=== PATIENT | female | born 1995 | race Caucasian/White ===

== ENCOUNTER 2023-03-10 10:38 | Emergency (ER) | payer BC, SELFPAY ==
[2023-03-10] VITALS (7 sets, daily range): BP systolic 108–126; BP diastolic 73–83; PULSE 76–95; RESP 16–22; TEMP 36.9–37; O2SAT 96–100; BMI 32.2
[2023-03-10 11:33] LABS: Chloride 103 mmol/L (98-107); Sodium 139 mmol/L (136-145)
--- NOTE | 2023-03-10 11:33 | HMH.EDGENADL ---
Discharge Plan Disposition Patient Disposition: Home, Self-Care Condition: Good Prescriptions Prescriptions: New nitazoxanide 500 mg tablet 500 mg PO TID 7 Days Qty: 21 0RF Rx Instructions: must administer with a meal/food Referrals Follow up/Referrals: Nikole Diego MD [Primary Care Provider] - See instructions Activity Restrictions/Add. Instructions Additional Instructions/Restrictions: You were evaluated in the emergency department today. Hydrate at home. Return to the emergency department for new or worsening symptoms. Clinical Impressions Clinical Impression: Diarrhea, Hypokalemia Instructions Patient Instructions: DI for Diarrhea and Traveler's Diarrhea -- Adult, DI for Nausea -- Adult Discharge ED Provider: Kellie Adler General Adult HPI General Chief complaint: Nausea/Vomiting/Diarrhea Stated complaint: DIARRHEA FOR A WEEK Time Seen by Provider: 03/10/23 10:50 Mode of Arrival: Ambulatory Source of Information: Patient Limitations: No Limitations Description of Symptoms (Recalled from ER Triage Doc. by RN): c/o 6 days of diarrhea after her calf 2 weeks ago with having diarrhea (scours). States this started 5 days after the calf . History of Present Illness HPI narrative: This patient is a 27-year-old female who denies significant past medical history presenting to the emergency department for evaluation with concern for diarrhea. She reports that her bottle-fed calf 2 weeks ago after having profuse, watery diarrhea, and she started having watery diarrhea approximately 5 days later. She is concerned that she got scours from the cow. She was reading online that it could be Cryptosporidium, and she is requesting possible treatment for this. She states she is having anywhere from 10-20 loose, watery bowel movements a day. She also notes generalized abdominal cramping. She denies any blood in her stools or dark tarry stools. No other concerns noted at this time. No history of bowel issues, and no recent antibiotic use. Related Data Previous Rx's Medication Instructions Recorded nitazoxanide 500 mg tablet 500 mg PO TID 7 days #21 tabs 03/10/23 Allergies Allergy/AdvReac Type Severity Reaction Status Date / Time No Known Allergies Allergy Verified 03/10/23 11:15 [facility] Disclaimer: The information contained in this section may have been updated after the patient was seen, as this information can be updated by other users. Social History Smoking Status: Never smoker alcohol intake: never current occupational status: employed Travel in the last 8 weeks: None ROS Obtained: Yes All systems reviewed & no additional complaints except as documented Physical Exam General General appearance: alert and in no apparent distress Head Head exam: atraumatic and normocephalic Eye Eye exam: Present normal appearance, PERRL and EOMI ENT ENT exam: Present normal exam, normal oropharynx, mucous membranes moist and normal external ear exam Neck Neck exam: Present normal inspection, full ROM and trachea midline; Absent tenderness Chest Chest inspection: Present normal inspection and symmetric chest wall rise; Absent tenderness Respiratory Respiratory exam: Present normal lung sounds bilaterally; Absent respiratory distress, wheezes, stridor or accessory muscle use Cardiovascular Cardiovascular exam: Present regular rate and normal rhythm Abdominal Exam Abdominal exam: Present soft; Absent distention, tenderness or guarding Extremities Exam Extremities exam: Present normal inspection, full ROM and normal capillary refill; Absent tenderness or edema Back Exam Back exam: Present normal inspection and full ROM; Absent tenderness Neurological Exam Neurological exam: Present alert, oriented X3, CN II-XII intact and normal gait; Absent motor sensory deficit Psychiatric Psychiatric exam: Present normal affect and dori
[2023-03-10 11:36] LABS: Alanine Aminotransferase 42 U/L (12-78); Albumin Level 4.5 g/dl (3.5-5.0); Albumin/Globulin Ratio 1.6 (1.1-1.8); Alkaline Phosphatase 56 U/L (38-126); Anion Gap 12.9 mEq/L (5-15); Aspartate Amino Transferase 44 U/L (14-36); Bilirubin,Total 0.5 mg/dl (0.2-1.3); Blood Urea Nitrogen 9 mg/dl (7-17); Calcium 8.4 mg/dl (8.4-10.2); Carbon Dioxide 26 mmol/L (22.0-30.0); Creatinine Clearance Estimated 163 mL/min (50-200); Estimated Glomerular Filt Rate 118 ml/min (>60); GFR (African American) 143 ML/MIN (>60); Globulin 2.8 g/dL (1.3-3.2); Glucose 86 mg/dl (74-100); Lipase 83 U/L (23-300); Magnesium 1.7 mg/dl (1.6-2.3); Total Protein,Serum 7.3 g/dl (6.3-8.2)
[2023-03-10 11:41] LABS: HCG Qualitative, Serum Negative (Negative)
[2023-03-10 11:45] LABS: Potassium 2.9 mmoL/L (3.5-5.1)
--- NOTE | 2023-03-10 11:45 | PC.NURSE ---
checked on pt no needs at this time,call light at bs
--- NOTE | 2023-03-10 11:45 | PC.NURSE ---
CRITICAL K+ 2.9 RECEIVED FROM ILAN IN LAB, PT NAME AND R/V DR KATZ NOTIFIED OF K+2.9
[2023-03-10 11:51] LABS: Basophils % 0.5 % (0.1-2.0); Eosinophils # 0.2 K/mm3 (0.0-0.4); Eosinophils % 3.8 % (0.1-12.0); Hematocrit 43.8 % (37.0-47.0); Hemoglobin 14.9 g/dL (12.2-16.2); Lymphocytes # 1.5 K/mm3 (0.7-4.5); Lymphocytes % 27.6 % (10-50); Mean Corpuscular HGB Conc 34.1 g/dL (31.8-35.4); Mean Corpuscular Hemoglobin 29.2 pg (27.0-31.2); Mean Corpuscular Volume 85.8 fl (81-99); Mean Platelet Volume 9.5 fl (7.4-10.4); Monocytes # 0.4 K/mm3 (0.1-1.0); Monocytes % 7.2 % (1.7-9.3); Neutrophils # 3.3 K/mm3 (1.8-7.8); Neutrophils % 60.9 % (37.0-80.0); Platelet Count 242 K/mm3 (142-424); Red Cell Distribution Width 13.1 % (11.5-17.5); White Blood Count 5.5 K/mm3 (4.8-10.8)
--- NOTE | 2023-03-10 12:11 | PC.NURSE ---
PT MEDICATED PER EMAR, UPDATED ON POC. CALL LIGHT WITHIN REACH
--- NOTE | 2023-03-10 15:23 | PC.NURSE ---
PT UNABLE TO PROVIDE STOOL SAMPLE AFTER MULTIPLE ATTEMPTS, AWARE
== END 2023-03-10 16:10 | disposition home or self-care (01) ==
PROVIDERS: Emergency Provider Emergency Medicine; PCP Pediatrics
DX: R19.7 Diarrhea, unspecified (principal); E87.6 Hypokalemia
CPT/HCPCS: 80053; 83690; 83735; 84703; 85025; 96361; 96365; 96367; 99284; J3475

== ENCOUNTER 2023-11-27 11:30 | Outpatient (CLI) | payer BC, SELFPAY ==
[2023-11-27 18:42] LABS: Basophils % 0.5 % (0.1-2.0); Eosinophils # 0.2 K/mm3 (0.0-0.4); Eosinophils % 2.3 % (0.1-12.0); Hematocrit 42.7 % (37.0-47.0); Hemoglobin 13.6 g/dL (12.2-16.2); Lymphocytes # 1.9 K/mm3 (0.7-4.5); Lymphocytes % 26.9 % (10-50); Mean Corpuscular HGB Conc 31.8 g/dL (31.8-35.4); Mean Corpuscular Hemoglobin 29.1 pg (27.0-31.2); Mean Corpuscular Volume 91.3 fl (81-99); Mean Platelet Volume 10.5 fl (7.4-10.4); Monocytes # 0.3 K/mm3 (0.1-1.0); Monocytes % 4.6 % (1.7-9.3); Neutrophils # 4.6 K/mm3 (1.8-7.8); Neutrophils % 65.7 % (37.0-80.0); Platelet Count 310 K/mm3 (142-424); Red Blood Count 4.67 M/mm3 (4.20-5.40); Red Cell Distribution Width 13.5 % (11.5-17.5); White Blood Count 6.9 K/mm3 (4.8-10.8)
[2023-11-27 19:37] LABS: Alanine Aminotransferase 22 U/L (12-78); Albumin/Globulin Ratio 1.5 (1.1-1.8); Alkaline Phosphatase 56 U/L (38-126); Anion Gap 9.2 mEq/L (5-15); Aspartate Amino Transferase 25 U/L (14-36); Bilirubin,Total 0.6 mg/dl (0.2-1.3); Blood Urea Nitrogen 11 mg/dl (7-17); Calcium 9.1 mg/dl (8.4-10.2); Carbon Dioxide 25 mmol/L (22.0-30.0); Chloride 109 mmol/L (98-107); Chol/HDL Ratio 4.3 (1-3.5); Cholesterol 188 mg/dl (140-200); Estimated Glomerular Filt Rate 117 ml/min (>60); GFR (African American) 142 ML/MIN (>60); Globulin 2.7 g/dL (1.3-3.2); Glucose 92 mg/dl (74-100); HDL Cholesterol 44 mg/dl (40-60); Potassium 4.2 mmoL/L (3.5-5.1); Sodium 139 mmol/L (136-145); Total Protein,Serum 6.7 g/dl (6.3-8.2); Triglycerides 96 mg/dl (30-150); VLDL Cholesterol 19 mg/dL (0-40)
[2023-11-27 19:48] LABS: Direct LDL Cholesterol 109.68 mg/dL (100-129)
[2023-11-27 19:51] LABS: 25-OH Vitamin D, Total 33.6 ng/mL (30-100)
[2023-11-27 21:37] LABS: Thyroid Stimulating Hormone 0.78 uIU/mL (0.465-4.68)
== END 2023-11-27 23:59 | disposition home or self-care (01) ==
LOC: LAB.DROPOF 11-28 09:26
PROVIDERS: PCP Family Medicine; Visit Provider Family Medicine
DX: E87.6 Hypokalemia (principal); E66.9 Obesity, unspecified; Z68.31 Body mass index [BMI] 31.0-31.9, adult
CPT/HCPCS: 80050; 80053; 80061; 82306; 84443; 85025

== ENCOUNTER 2023-12-07 12:55 | Outpatient (CLI) | payer BC, SELFPAY ==
--- NOTE | 2023-12-07 13:04 | XR_ITS ---
FINAL REPORT CLINICAL HISTORY: Foot Pain COMPARISON: None FINDINGS: RIGHT FOOT 4 views of the right foot were obtained. There is no acute fracture or dislocation. Visualized joint spaces are normally aligned. Soft tissues are unremarkable. IMPRESSION: No acute bony abnormality. Reviewed, Interpreted and Dictated by Max Lombardo MD Transcribed by Kim Castillo Authenticated and [facility]
--- NOTE | 2023-12-07 13:04 | XR_ITS ---
FINAL REPORT CLINICAL HISTORY: Foot Pain COMPARISON: None FINDINGS: LEFT FOOT 4 views of the left foot demonstrate no acute fracture or dislocation. The visualized joint spaces are normally aligned. The soft tissues are unremarkable. IMPRESSION: No acute bony abnormality. Reviewed, Interpreted and Dictated by Max Lombardo MD Transcribed by Kim Castillo Authenticated and [facility]
== END 2023-12-07 23:59 | disposition home or self-care (01) ==
LOC: RAD 12:56
PROVIDERS: PCP Family Medicine; Visit Provider Family Medicine
DX: R00.2 Palpitations (principal); M79.671 Pain in right foot; M79.672 Pain in left foot
CPT/HCPCS: 73630; 93270

== ENCOUNTER 2024-02-15 15:28 | Emergency (ER) | payer BC, SELFPAY ==
[2024-02-15 15:35] VITALS: BP 120/61; PULSE 91; RESP 20; TEMP 37.2; O2SAT 97; BMI 31.8
--- NOTE | 2024-02-15 15:40 | EXP.UTC ---
Discharge Plan Disposition Patient Disposition: Home, Self-Care Condition: Good Prescriptions Prescriptions: New propranolol 10 mg tablet 10 mg PO .qhs 30 Days Qty: 30 0RF Referrals Follow up/Referrals: Naz Fowler APRN [Primary Care Provider] - See instructions Activity Restrictions/Add. Instructions Additional Instructions/Restrictions: Take the medications as directed. Follow up with your regular doctor. GO TO THE ER FOR ANY WORSENING SYMPTOMS Clinical Impressions Clinical Impression: Anxiety Stand Alone Forms Stand Alone Forms: Work/School Release Instructions Patient Instructions: Anxiety Disorders, Propranolol (Cardiovascular) Print Language Print Language: Upper Sorbian Discharge ED Provider: Romario Sandoval [facility] General Stated complaint: HBP,sometimes hot,dizzy Time Seen by Provider: 02/15/24 15:39 History of Present Illness Provider Complaint: She states that she has been having panic attacks at night after she goes to bed. She states that in the past she took a small dose of propranolol before bedtime and it helped them. She requests to have this prescribed again. Related Data Previous Rx's ?Medication ?Instructions ?Recorded propranolol 10 mg tablet 10 mg PO .qhs 30 days #30 tabs 02/15/24 Allergies Allergy/AdvReac Type Severity Reaction Status Date / Time No Known Allergies Allergy Verified 12/15/23 13:38 [facility] Disclaimer: The information contained in this section may have been updated after the patient was seen, as this information can be updated by other users. Medical History (Updated 02/15/24 @ 16:27 by Romraio Sandoval APRN) Depression Anxiety Hyperlipidemia Surgical History No significant past surgical history Social History Smoking Status: Never smoker alcohol intake: never substance use type: denies use current occupational status: employed and unemployed Travel in the last 8 weeks: None ROS Obtained: Yes All systems reviewed & no additional complaints except as documented Constitutional Constitutional: Denies chills and Denies fever(s) Eyes Eyes: Denies eye discharge ENT Ears, Nose, Mouth, and Throat: Denies dizziness, Denies otalgia and Denies sore throat Cardiovascular Cardiovascular: Denies chest pain Respiratory Respiratory: Denies shortness of breath, Denies chest congestion, Denies cough, Denies stridor and Denies wheezing Gastrointestinal Gastrointestingal: Denies nausea or vomiting Musculoskeletal Musculoskeletal: Reports system reviewed and no additional complaints, except as documented and Denies arthralgias Integumentary/Breasts Skin/Breast: Denies rash Neurologic Neurologic: Denies dizziness and Denies paresthesias Allergic/Immunologic Allergic/Immunologic: Denies wheezing Physical Exam General General appearance: alert and in no apparent distress Head Head exam: atraumatic, normocephalic and normal inspection Eye Eye exam: Present normal appearance, PERRL and EOMI ENT ENT exam: Present normal exam, normal oropharynx, mucous membranes moist, TM's normal bilaterally and normal external ear exam Neck Neck exam: Present normal inspection, full ROM and trachea midline; Absent meningismus or lymphadenopathy Chest Chest inspection: Present normal inspection and symmetric chest wall rise; Absent tenderness Respiratory Respiratory exam: Present normal lung sounds bilaterally; Absent respiratory distress Cardiovascular Cardiovascular exam: Present regular rate and normal rhythm; Absent JVD Abdominal Exam Abdominal exam: Present soft and normal bowel sounds; Absent distention, tenderness or guarding Extremities Exam Extremities exam: Present normal inspection, full ROM and normal capillary refill; Absent calf tenderness Back Exam Back exam: Present normal inspection; Absent tenderness Neurological Exam Neurological exam: Present alert and oriented X3 Psychiatric Psychiatric exam: Present normal affect and normal mood Skin Skin exam: Present warm, dry, intact and normal color Lymphatic Lymphatic Findings: no adenopathy Medical Decision Making Medical Records Medical records reviewed: No I reviewed the patient's medical records. Screening: Per USPSTF and CDC recommendations, given the prevalence of disease in our region, it is our hospital?s policy to screen for HIV and viral Hepatitis for all patients aged 18 and over and those with ongoing risk factors. Jin Inquiry Pt receiving controlled substance: No
[2024-02-15 16:33] VITALS: BP 120/61; PULSE 91; RESP 20; TEMP 37.2; O2SAT 97
== END 2024-02-15 16:36 | disposition home or self-care (01) ==
PROVIDERS: Emergency Provider Nurse Practitioner Family; PCP Family Medicine
DX: F41.9 Anxiety disorder, unspecified (principal)
CPT/HCPCS: 99213; G0381

== ENCOUNTER 2024-03-03 10:29 | Outpatient (CLI) | payer BC, SELFPAY | END 2024-03-03 23:59 | disposition home or self-care (01) | LOC: LAB.DROPOF 03-07 10:30 | PROVIDERS: PCP Family Medicine; Visit Provider Family Medicine | DX: N89.8 Other specified noninflammatory disorders of vagina (principal) | CPT/HCPCS: 87086; 87210 ==

== ENCOUNTER 2024-10-31 09:45 | Outpatient (CLI) | payer SELFPAY ==
--- NOTE | 2024-10-31 09:47 | XR_ITS ---
FINAL REPORT CLINICAL HISTORY: pain with breathing COMPARISON: None FINDINGS: No acute pulmonary density is evident. There is no evidence of effusion or other pleural disease. The mediastinum has a normal appearance. The cardiac silhouette is unremarkable. IMPRESSION: Unremarkable chest exam. Reviewed, Interpreted and Dictated by Yamila Danielson MD Transcribed by Kim Castillo Authenticated and [facility]
--- OUTSIDE RECORDS SUMMARY | 2024-10-31 09:49 | XMS_ITS | Referral Summary ---
Author Organization [employer] ([place], [place], [place], [place]) Address [address] [place] [address] Care Team Providers Care Antisqueak Filler Name Role Phone Unavailable Primary Care Provider Unavailabl e Social History Tobacco Use Types Packs/Day Years Used Date Smoking Tobacco: Never Assessed Comments Unknown Sex and Gender Information Value Date Recorded Sex Assigned at Female 10/15/2021 9:02 PM CDT Legal Sex Female 9:02 PM CDT Gender Identity Female 10/15/2021 9:02 PM CDT Sexual Orientation Not on file Plan of Treatment Not on file
--- OUTSIDE RECORDS SUMMARY | 2024-10-31 09:49 | XMS_ITS | Encounter Summary ---
Author Organization [employer] ([place], [place], [place], [place]) Address [address] [place] [address] Care Team Providers Care Pharmacoepidemiologist Name Role Phone Unavailable Primary Care Provider Unavailabl e Encounter Details Date Type Department Care Team (Late st Contact Info) Description 05/22/2021 Transcribed Document [facility] [place] [facility] [place] [address] ProviderGigi MD [address] [place] [id number] Social History Tobacco Use Types Packs/Day Years Used Date Smoking Tobacco: Never Assessed Comments Unknown Sex and Gender Information Value Date Recorded Sex Assigned at Female 10/15/2021 9:02 PM CDT Legal Sex Female 9:02 PM CDT Gender Identity Female 10/15/2021 9:02 PM CDT Sexual Orientation Not on file documented as of this encounter Miscellaneous Notes * Cerner Conversion Note - Historical ProviderMD - 05/22/2021 3:52 PM ELECTRONICS DESIGN ENGINEER ED Triage Entered On: 05/22/2021 16:00 EST Performed On: 05/22/2021 15:57 EST by HALI PARRA RN ED Triage Across the Room Chief Complaint : Pt C/o dizziness and blurred vision that occured in the middle of the night Triage Date/Time : 05/22/2021 15:57 EST HALI PARRA RN - 05/22/2021 15:57 EST DCP GENERIC CODE Tracking Acuity : 3 - Urgent Tracking Group : [facility] [place] HALI PARRA RN - 05/22/2021 15:57 EST Mode of Arrival : Ambulatory Transported to ED by : Private vehicle To Room Via : Ambulate Accompanied By : Unaccompanied ED Vital Signs : Document Height & Weight : Document ED Allergies : Document ED Reason for Visit : Document HALI PARRA RN - 05/22/2021 15:57 EST Infectious Disease History Does patient have symptoms of COVID-19? : No Has the Patient Been Tested for COVID-19 in the last 14 days? : No, Patient stated Does the Patient state known exposure to a COVID-19 positive case in the last 14 days? : No Patient Vaccinated for COVID-19 : Not vaccinated Does Patient want a COVID-19 Vaccine? : No HALI PARRA RN - 05/22/2021 15:57 EST Infectious Disease Risk Screening Grid Cough < 2 wks of unknown origin : NO Cough > 2 weeks : NO Blood in Sputum : NO Fever or self-reported Fever : NO Rash of unknown origin : NO Headache : NO Stiff neck : NO Night Sweats : NO Unexplained Weight Loss : NO Diarrhea (3 episode per day) : NO HALI PARRA RN - 05/22/2021 15:57 EST Physical contact outside [place] in the last 30 days : No Hospitalized in Foreign Country : No Infectious Disease History : None INF Disease TB Screening Calc : 0 INF Disease Recent Travel Calc : 0 HALI PARRA RN - 05/22/2021 15:57 EST Vital Signs ED Temperature Source : Temporal artery scanning Temperature Mode : Fahrenheit Temperature, Fahrenheit : 98.7 Deg F ED Pain : No Clinical Temperature, C : 37.1 Deg C Oxygen Therapy Mode : Room air Peripheral Pulse Rate : 97 bpm Respiratory Rate : 16 Breaths/Min Systolic Blood Pressure : 130 mmHg Diastolic Blood Pressure : 63 mmHg Oxygen Saturation : 98 % HALI PARRA RN - 05/22/2021 15:57 EST Allergy (As Of: 05/22/2021 16:00:59 EST) Allergies (Active) No Known Allergies Estimated Onset Date: Unspecified ; Created By: HALI PARRA RN; Reaction Status: Active ; Category: Drug ; Substance: No Known Allergies ; Type: Allergy ; Updated By: HALI PARRA RN; Reviewed Date: 05/22/2021 15:59 EST Diagnosis Control ED (As Of: 05/22/2021 16:00:59 EST) Diagnoses(Active) Vision changes Date: 05/22/2021 ; Diagnosis Type: Reason For Visit ; Confirmation: Complaint of ; Clinical Dx: Vision changes ; Classification: Medical ; Clinical Service: Emergency medicine ; Code: PNED ; Probability: 0 ; Diagnosis Code: [id number] ED Height and Weight Height Source : Estimated Height Entry Format : [place] Height, Feet : 5 ft(Converted to: 152 cm, 60 Inch) Height, Inches : 0 Inch(Converted to: 0 ft 0 Inch, 0.00 cm) Clinical Height : 152.4 cm Weight Source, ED : Critical estimated dosing weight Weight Entry Format : [place] Weight, Pounds : 160 lb Clinical Dosing Weight : 72.73 kg Body Surface Area (BSA) : 1.7 m2 Body Mass Index : 31.3 kg/m2 (HI) [place] Body Weight (IBW) : 45.16 kg HALI PARRA RN - 05/22/2021 15:57 EST documented in this encounter Plan of Treatment Not on file documented as of this encounter Visit Diagnoses Not on filedocumented in this encounter
--- OUTSIDE RECORDS SUMMARY | 2024-10-31 09:49 | XMS_ITS | Encounter Summary ---
Author Organization [employer] ([place], [place], [place], [place]) Address [address] [place] [address] Care Team Providers Care Electrical Installer Name Role Phone Unavailable Primary Care Provider Unavailabl e Encounter Details Date Type Department Care Team (Late st Contact Info) Description 05/22/2021 Transcribed Document [facility] [place] [facility] [address] ProviderGigi MD [facility] [place] [id number] Social History Tobacco Use Types Packs/Day Years Used Date Smoking Tobacco: Never Assessed Comments Unknown Sex and Gender Information Value Date Recorded Sex Assigned at Female 10/15/2021 9:02 PM CDT Legal Sex Female 9:02 PM CDT Gender Identity Female 10/15/2021 9:02 PM CDT Sexual Orientation Not on file documented as of this encounter Miscellaneous Notes * Cerner Conversion Note - Gigi ProviderMD - 05/22/2021 3:52 PM TOP FRAME FITTER ED Assessment Entered On: 05/22/2021 19:03 EST Performed On: 05/22/2021 19:01 EST by ENDI GURROLA RN-PATIENT CARE BEDSIDE NON-EXEMPT ED Quick Look Assessment Level of Consciousness : Alert Affect/Behavior : Appropriate, Calm, Cooperative Orientation : Oriented x 4 ENID GURROLA RN-PATIENT CARE BEDSIDE NON-EXEMPT - 05/22/2021 19:01 EST ED General-Functional Assess Information Obtained From : Patient Communication Barrier : None Primary Language : Prydeinig Any Spiritual/Cultural Needs or Requests : No Currently in Unsafe Situation : No ENID GURROLA RN-PATIENT CARE BEDSIDE NON-EXEMPT - 05/22/2021 19:01 EST Social Habits Smoking Status : Never (less than 100 in lifetime; none in last 30 days) Smokeless Tobacco Status : Never Desires Tobacco Cessation Calc : 0 ENID GURROLA RN-PATIENT CARE BEDSIDE NON-EXEMPT - 05/22/2021 19:01 EST Social History (As Of: 05/22/2021 19:03:10 EST) Neurologic ASMT, ED Neurologic Assessment WDL : WDL with exceptions (Comment: Pt reports to ED with c/o blurred vision and dizziness that began overnight. Pt denies injury. [ENID GURROLA RN-PATIENT CARE BEDSIDE NON-EXEMPT - 05/22/2021 19:01 EST] ) Neurological Symptoms : Dizziness, Visual disturbance Level of Consciousness : Alert Affect/Behavior : Appropriate, Calm, Cooperative Speech : Clear Orientation : Oriented x 4 ENID GURROLA RN-PATIENT CARE BEDSIDE NON-EXEMPT - 05/22/2021 19:01 EST documented in this encounter Plan of Treatment Not on file documented as of this encounter Visit Diagnoses Not on filedocumented in this encounter
--- OUTSIDE RECORDS SUMMARY | 2024-10-31 09:49 | XMS_ITS | Clinical Summary ---
Author Organization [facility] Address [address] [place] [address] Care Team Providers Care Director Dance Name Role Phone Pcp, No Primary Care Provider Unavailabl e Allergies No known active allergies Medications * This document contains information received from the source organization and may not represent a complete record from that organization. No known medications Active Problems Problem Noted Date Diagnosed Date Insomnia 12/07/2020 Chronic tonsillitis 08/06/2020 Overview (09/21/2022): Last Assessment & Plan: Refer to ENT for follow-up and discussion. May be related to allergies so we will treat allergies with Claritin and Flonase. Asthma, well controlled 08/06/2020 Overview (09/21/2022): Last Assessment & Plan: Asthma is unchanged. The patient is experiencing weekly daytime asthma symptoms. She is experiencing no nighttime asthma symptoms. Counseled to void exposure to cigarette smoke. Discussed medication dosage, use, side effects, and goals of treatment in detail. Discussed technique for using MDIs and/or nebulizer. Follow up in 3 months, or sooner should new symptoms or problems arise. Refilled albuterol, follow-up if needs to use more than 3 times a week on average to discuss daily inhaler. Allergic rhinitis 10/01/2015 Overview (09/21/2022): Last Assessment & Plan: claritin and flonase as dir Generalized anxiety disorder 06/05/2015 Overview (09/21/2022): Last Assessment & Plan: Psychological condition is improving with treatment. Continue current treatment regimen. Psychological condition will be reassessed in 3 months. Depressive disorder 06/05/2015 Immunizations Immunization Administration Dates Next Due Influenza, Unspecified 03/05/2012 Influenza, injectable, quadrivalent 01/17/2020 PPD Skin Test (TB Skin Test) 12/22/2015 Rho (D) Immune Globulin 12/25/2018 Tdap 12/26/2021 Social History Tobacco Use Types Packs/Day Years Used Date Smoking Tobacco: Every Day Cigarettes 0.5 12.5 Started: 2012 Smokeless Tobacco: Never Tobacco Cessation:Ready to Q uit: Not Asked; Counseling Given: Not Answered Comments Unknown Sex and Gender Information Value Date Recorded Sex Assigned at Not on file Legal Sex Female 6:34 PM EDT Gender Identity Not on file Sexual Orientation Not on file Last Filed Vital Signs Vital Sign Reading Time Taken Comments Blood Pressure 118/82 09/21/2022 7:37 PM EDT Pulse 80 09/21/2022 7:37 PM EDT Temperature 36.9 C (98.4 F) 09/21/2022 7:37 PM EDT Respiratory Rate 18 09/21/2022 7:37 PM EDT Oxygen Saturation 98% 09/21/2022 7:37 PM EDT Inhaled Oxygen Concentration - - Weight 68 kg (150 lb) 09/21/2022 3:19 PM EDT Height 154.9 cm (5' 1 ) 08/14/2020 9:35 AM EDT Body Mass Index 28.34 08/14/2020 9:35 AM EDT Plan of Treatment Health Maintenance Due Date Last Done Comments Dental Prophylaxis 1993 [facility]-Depression Screening 1993 [facility]-HIV Screening 1993 [facility]-Infant/Child/Adol SDOH Screenings 1993 [facility]-Obesity Intervention 10/22/1999 [facility]-Varicella Vaccines (1 of 2 - 13+ 2-dose series) 2006 HPV Vaccines (1 - 3-dose series) 2008 [facility]- SDOH Screenings 10/22/2011 [facility]-Adult SDOH Screenings 10/22/2011 [facility]-Hepatitis B Vaccines (1 of 3 - 19+ 3-dose series) 2012 [facility]-Pneumococcal Vaccine: Pediatrics (0 to 5 Years) and At-Risk Patients (6 to 49 Years) (1 of 2 - PCV) 2012 [facility]-Pap Smear 2014 Dental Oral Exam 02/01/2023 08/01/2022 Dental X-Ray: Bitewings 08/03/2023 08/01/2022 [facility]-Cervical Cancer Screening 10/22/2023 [facility]-HPV/Cotest 10/22/2023 [id number] Vaccine (1 - season) 2023 [facility]-Influenza Vaccine (#1) 12/19/202403/20, 01/17/2020, 03/05/2012 Dental X-Ray: Full Mouth 08/02/2025 08/01/2022 [facility]-DTaP,Tdap,and Td Vaccine s (2 - Td or Tdap) 12/27/2031 12/26/2021 [facility]-Zoster Vaccines (1 of 2) 10/22/2043 [facility]-Hepatitis C Screening Completed 06/07/2018 [facility]-HIB Vaccines Aged Out No longer e ligible based on patient's age to complete this topic [facility]-Hepatitis A Vaccines Aged Out No longer eligible based on patient's age to complete this topic [facility]-IPV Vaccines Aged Out No longer e ligible based on patient's age to complete this topic [facility]-Rotavirus Vaccines Aged Out No lo nger eligible based on patient's age to complete this topic Procedures Procedure Name Priority Date/Time Associated Diagnosis Comments PANORAMIC RADIOGRAPHIC IMAGE Routine 08/01/2022 8:15 AM EDT Encounter for dental examination BITEWINGS - 4 RADIOGRAPHIC IMAGES Routine 08/01/2022 8:15 AM EDT Encounter for dental examination COMPREHENSIVE ORAL EVALUATION - NEW OR ESTABLISHED PATIENT Routine 08/01/2022 8:15 AM EDT Encounter for dental examination from Last 3 Months or Most Recently Relevant to Health Maintenance Insurance D-[address] [place], [place] [id number] Care Teams Director Dance Relationship Specialty Start Date End Date Pcp, No [address] [phone] PCP - General Family Medicine 12/26/21
--- OUTSIDE RECORDS SUMMARY | 2024-10-31 09:49 | XMS_ITS | Clinical Summary ---
Author Organization [employer] ([place], [place], [place], [place]) Address [address] [place] [address] Care Team Providers Care Butter Fat Tester Name Role Phone Unavailable Primary Care Provider [...]
--- OUTSIDE RECORDS SUMMARY | 2024-10-31 09:49 | XMS_ITS | Encounter Summary ---
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 If you had special tests, such as EKG???s or X-rays, the interpretation of your tests given to you by the Emergency Department Physician is a preliminary report. Some fractures and illnesses fail to show up on preliminary tests. These will be reviewed again and we will call you if there are any new suggestions. If your symptoms continue notify your physician. After you leave, you should follow the instructions provided. What to do next Follow-Up Appointments Follow Up with KRISTINE WHITESIDE When Within As needed Comments Call for follow up appointment Follow-up as instructed Where: [address] [place] [address]- Business (1) Follow Up with Follow up with primary care provider When Within 2 to 3 days Comments Call for follow up appointment. Please follow-up with your primary care provider in 2 to 3 days. Return to ED if you experience new or worsening symptoms. If you do not have a primary care provider the patient resource diamond powder mixer can assist you with establishing care and scheduling follow-up. The Patient Resource Township Supervisor can be contacted at . Follow Up with [facility] When Within 2 to 3 days Allergies No Known Allergies Immunizations This Visit No Immunizations Found Medications The home medications listed are only as accurate as the information you provided. Please continue taking all of your medications prescribed by your Primary Care Provider unless specifically told to change or discontinue the medication. Please direct any questions regarding your home medications to your Primary Care Provider. Take your medications faithfully. Do NOT skip medication. Do NOT stop taking medications without the direction of a physician. Carry a list of your medications with you at all times, and take this medication list with you to your first follow up visit. Report any side effects. Avoid herbal remedies unless discussed with your physician. As part of your treatment plan, your physician may have prescribed a limited course of a controlled substance. This medication may be given to help people with moderate or severe pain or for other medical conditions, but there are risks involved with treatment. Common side effects may include nausea, constipation, drowsiness, sweating, itching, dry mouth, and rash. More serious side effects may include cognitive and motor impairment, like problems with thinking, concentrating, alertness, and movement (e.g. slowed reflexes), and driving and operating heavy machinery can be dangerous. It is important for you to talk to your physician if you have these side effects or questions. These controlled substances can produce physical dependence and be habit-forming if taken for an extended period of time, which means that the body has gotten used to them and may experience withdrawal symptoms if they are abruptly stopped. Withdrawal symptoms can include runny nose, sweating, goose bumps, diarrhea, abdominal cramping, rapid heartbeat, difficulty sleeping, and nervousness. Please dispose of unused and medications per pharmacy guidance. Test Results Laboratory or Other Results This Visit (last charted value for your 05/22/2021 visit) Endocrinology 05/22/2021 5:47 PM HCG Urine Qualitative: Negative Computed Tomography 05/22/2021 7:[address] Head WO: CT Head WO Education Materials General Headache Without Cause A headache is pain or discomfort felt around the head or neck area. The specific cause of a headache may not be found. There are many causes and types of headaches. A few common ones are: ??? Tension headaches. ??? Migraine headaches. ??? Cluster headaches. ??? Chronic daily headaches. Follow these instructions at home: Watch your condition for any changes. Let your health care provider know about them. Take these steps to help with your condition: Managing pain ??? Take [id number] and prescription medicines only as told by your health care provider. ??? Lie down in a dark, quiet room when you have a headache. ??? If directed, put ice on your head and neck area: ? Put ice in a plastic bag. ? Place a towel between your skin and the bag. ? Leave the ice on for 20 minutes, 2???3 times per day. ??? If directed, apply heat to the affected area. Use the heat source that your health care provider recommends, such as a moist heat pack or a heating pad. ? Place a towel between your skin and the heat source. ? Leave the heat on for 20???30 minutes. ? Remove the heat if your skin turns bright red. This is especially important if you are unable to feel pain, heat, or cold. You may have a greater risk of getting burned. ??? Keep lights dim if bright lights bother you or make your headaches worse. Eating and drinking ??? Eat meals on a regular schedule. ??? If you drink alcohol: ? Limit how much you use to: ? 0???1 drink a day for women. ? 0???2 drinks a day for men. ? Be aware of how much alcohol is in your drink. In the [place] one drink equals one 12 oz bottle of beer (355 mL), one 5 oz glass of wine (148 mL), or one 1?? oz glass of hard liquor (44 mL). ??? Stop drinking caffeine, or decrease the amount of caffeine you drink. General instructions ??? Keep a headache journal to help find out what may trigger your headaches. For example, write down: ? What you eat and drink. ? How much sleep you get. ? Any change to your diet or medicines. ??? Try massage or other relaxation techniques. ??? Limit stress. ??? Sit up straight, and do not tense your muscles. ??? Do not use any products that contain nicotine or tobacco, such as cigarettes, e-cigarettes, and chewing tobacco. If you need help quitting, ask your health care provider. ??? Exercise regularly as told by your health care provider. ??? Sleep on a regular schedule. Get 7???9 hours of sleep each night, or the amount recommended by your health care provider. ??? Keep all follow-up visits as told by your health care provider. This is important. Contact a health care provider if: ??? Your symptoms are not helped by medicine. ??? You have a headache that is different from the usual headache. ??? You have nausea or you vomit. ??? You have a fever. Get help right away if: ??? Your headache becomes severe quickly. ??? Your headache gets worse after moderate to intense physical activity. ??? You have repeated vomiting. ??? You have a stiff neck. ??? You have a loss of vision. ??? You have problems with speech. ??? You have pain in the eye or ear. ??? You have muscular weakness or loss of muscle control. ??? You lose your balance or have trouble walking. ??? You feel faint or pass out. ??? You have confusion. ??? You have a seizure. Summary ??? A headache is pain or discomfort felt around the head or neck area. ??? There are many causes and types of headaches. In some cases, the cause may not be found. ??? Keep a headache journal to help find out what may trigger your headaches. Watch your condition for any changes. Let your health care provider know about them. ??? Contact a health care provider if you have a headache that is different from the usual headache, or if your symptoms are not helped by medicine. ??? Get help right away if your headache becomes severe, you vomit, you have a loss of vision, you lose your balance, or you have a seizure. This information is not intended to replace advice given to you by your health care provider. Make sure you discuss any questions you have with your health care provider. Document Revised: 10/25/2018 Document Reviewed: 10/25/2018 [employer] Patient Education ?? 2020 [employer]. Blurred Vision, Adult Having blurred vision means that you cannot see things clearly. Your vision may seem fuzzy or out of focus. It can involve your vision for objects that are close or far away. It may affect one or both eyes. There are many causes of blurred vision, including cataracts, macular degeneration, eye inflammation (uveitis), and diabetic retinopathy. In many cases, blurred vision has to do with the shape of your eye. An abnormal eye shape means you cannot focus well (refractive error). When this happens, it can cause: ??? Faraway objects to look blurry (nearsightedness). ??? Close objects to look blurry (farsightedness). ??? Blurry vision at any distance (astigmatism). Refractive errors are often corrected with glasses or contacts. Blurred vision can be diagnosed based on your symptoms and a physical exam. Tell your health care provider about any other health problems you have, any recent eye injury, and any prior surgeries. You may need to see a health care provider who specializes in eye problems (briar cutter). Your treatment will depend on what is causing your blurred vision. Follow these instructions at home: ??? Keep all follow-up visits as told by your health care provider. This is important. These include any visits to your eye specialists. ??? Do not drive or use heavy machinery if your vision is blurry. ??? Use eye drops only as told by your health care provider. ??? If you were prescribed glasses or contact lenses, wear the glasses or contacts as told by your health care provider. ??? Schedule eye exams regularly. ??? Pay attention to any changes in your symptoms. Contact a health care provider if: ??? Your symptoms do not improve or they get worse. ??? You have: ? New symptoms. ? A headache. ? Trouble seeing at night. ? Trouble noticing the difference between colors. ??? You notice: ? Drooping of your eyelids. ? Drainage coming from your eyes. ? A rash around your eyes. Get help right away if: ??? You have: ? Severe eye pain. ? A severe headache. ? A sudden change in vision. ? A sudden loss of vision. ? A vision change after an injury. ??? You notice flashing lights in your field of vision. Your field of vision is the area that you can see without moving your eyes. Summary ??? Having blurred vision means that you cannot see things clearly. Your vision may seem fuzzy or out of focus. ??? There are many causes of blurred vision. In many cases, blurred vision has to do with an abnormal eye shape (refractive error), and it can be corrected with glasses or contact lenses. ??? Pay attention to any changes in your symptoms. Contact a health care provider if your symptoms do not improve or if you have any new symptoms. This information is not intended to replace advice given to you by your health care provider. Make sure you discuss any questions you have with your health care provider. Document Revised: 12/07/2020 Document Reviewed: 12/07/2020 [employer] Patient Education ?? 2020 [employer] Emergency Awareness and Preventative Care STROKE is an EMERGENCY Every Minute Counts Act FAST and Check for these signs: FACE Does the face look uneven? ARM Does one arm drift down? SPEECH Does their speech sound strange? TIME Call at any sign of stroke Stroke Risk Factors Atrial Fibrillation (irregular heartbeat) Diabetes Family history of stroke Heart Disease Heavy alcohol use High Blood Pressure High Cholesterol Physical inactivity and obesity Smoking Cigarette Smoking The facts are clear, cigarette smoking will shorten your life. Smoking can cause many illnesses along the way. As a healthcare provider, we recommend that you stop smoking. Assistance with quitting is available by contacting 9-320-QUPJ-NOW. This is a free resource providing counseling, support, and referral. Or you may contact your personal physician. National Suicide Prevention Lifeline: The National Suicide Prevention Lifeline is a national network of local crisis centers that provides free and confidential emotional support to people in suicidal crisis or emotional distress 24 hours a day, 7 days a week. Don't Wait! Stop a Heart Attack Before it Starts What is a heart attack? A heart attack is damage or to a part of the heart from severely decreased or lack of blood flow to the heart. Over time, arteries can become narrow from the buildup of fat and cholesterol, which is called plaque. The plaque can rupture causing a blood clot to form. When the blood clot forms, the artery can become severely narrowed or completely blocked, causing a heart attack. Heart attack is the leading cause of in the [place]. 85% of muscle damage occurs within the first 2 hours. Delay in the recognition of heart attack symptoms increases the chances of . Know the early symptoms of a heart attack: Nausea Feeling of fullness in chest Jaw Pain Pain that travels down one or both arms Fatigue/being tired Anxiety Back Pain Chest pressure, squeezing, or discomfort Shortness of breath Sweating, or a cold sweat Feeling of impending doom There are unusual signs of a heart attack, too! Women, the elderly, and diabetics may present with atypical symptoms: Fainting/dizziness Weakness Confusion Risk Factors for a Heart Attack Some heart disease risk factors, such as age and family history, cannot be changed. Others, like smoking and lack of exercise, can be changed. Smoking High Cholesterol High Blood Pressure Family History Obesity Age Gender (Males are at higher risk) Lack of Exercise Diabetes Diet Stress Excessive Alcohol Intake If you or someone you know is experiencing the signs and symptoms of a heart attack, DON???T DELAY. Call immediately and seek help. If someone collapses, perform CPR! Do not attempt to drive if you are having symptoms of heart attack. Hands-Only CPR Why Hands-Only CPR? Hands-Only CPR has been shown to be as effective as conventional CPR for cardiac arrests that occur outside of a hospital. Survival depends on immediately receiving CPR from someone nearby. How do you perform Hands-Only CPR? There are two easy steps: Call if you see a teen or adult collapse Push hard and fast in the center of the chest at a beat of 100 beats per minute. Save a life! 4 WAYS TO GET AHEAD OF SEPSIS SEPSIS is a MEDICAL EMERGENCY. Time matters! Infections put you and your family at risk for a life-threatening condition called sepsis. Sepsis is the body's extreme response to an infection. It is life-threatening, and without timely treatment, sepsis can rapidly lead to tissue damage, organ failure, and . Sepsis happens when an infection you already have-in your skin, lungs, urinary tract or somewhere else-triggers a chain reaction throughout your body. 1 PREVENT INFECTIONS Take good care of chronic conditions. Talk to your doctor about getting the recommended vaccines. 2 PRACTICE GOOD HYGIENE Wash your hands frequently. Keep cuts or open sores clean and covered until they are healed. 3 KNOW THE SYMPTOMS Confusion or disorientation Shortness of breath High heart rate Fever, shivering, or feeling very cold Extreme pain or discomfort Clammy or sweaty skin 4 ACT FAST Get medical care IMMEDIATELY if you suspect sepsis or if you have an infection that is not getting better or is getting worse. To learn more about sepsis and how to prevent infections, visit www.cdc.gov/sepsis. The examination and treatment you have received in the Emergency Department has been done to provide an appropriate evaluation and stabilizing treatment on an emergency basis only. Given the limited resources, it is not meant to be a substitute for complete medical care. The follow-up doctor you named will receive a copy of your records and all test reports. IT IS IMPORTANT THAT YOU SCHEDULE A FOLLOW-UP APPOINTMENT AND ARE RE-EVALUATED. You should report any new complaints, symptoms, or remaining problems at that time. IT IS IMPOSSIBLE FOR THE EMERGENCY DEPARTMENT TO RECOGNIZE AND TREAT ALL ELEMENTS OF INJURY OR ILLNESS IN A SINGLE VISIT. If you have been referred to a specialist physician, it means that we believe you may have a condition that requires the expertise of a specialist. These physicians work in partnership with the hospital and have agreed to see referred patients in their office for further evaluation. KEEP IN MIND THAT THE SPECIALIST HAS HIS/HER OWN OFFICE POLICIES WHICH MAY REQUIRE PROPER INSURANCE OR PAYMENT UP FRONT BEFORE THE SPECIALIST WILL SEE YOU. It is your responsibility to call the specialist physician to make an appointment. We do not have the ability to refer patients to specialists/physicians that work with specific insurance companies. Please be advised that all financial charges or billing practices are determined by that practice, not the hospital. If your insurance company requires that you see a specialist from their approved list, it is your responsibility to contact your insurance company to make those arrangements. It is also your responsibility to follow any other requirements of your insurance company necessary to obtain coverage for claims submitted. We will bill your insurance; however, you are responsible today for any co-pay amounts. You will receive a separate bill for any services you may have received including: emergency, radiology, or pathology physicians. Patient Name:JOSÉ MIGUEL SHEIKH I have received this information and was given the opportunity to ask questions. Patient/Legal Financial Specialist Name: Patient/Legal Financial Specialist Signature: Relationship to Patient: Clinician/Hospital Legal Financial Specialist Signature: Please Provide a Telephone Number Where You Can Be Reached: Is it Permissible To Leave a Message? Date: documented in this encounter Plan of Treatment Not on file documented as of this encounter Visit Diagnoses Not on filedocumented in this encounter
--- OUTSIDE RECORDS SUMMARY | 2024-10-31 09:49 | XMS_ITS | Encounter Summary ---
Author Organization [employer] ([place], [place], [place], [place]) Address [address] [place] [address] Care Team Providers Care Baseboard Heating Installer Name Role Phone Unavailable Primary Care Provider Unavailabl e Encounter Details Date Type Department Care Team (Late st Contact Info) Description 05/22/2021 Transcribed Document [facility] [place] [facility] [place] [address] ProviderGigi MD [address] [place] [address] [id number] Social History Tobacco Use Types Packs/Day Years [...] Conversion Note - Historical ProviderMD - 05/22/2021 5:51 PM 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 History of Present Illness The patient presents with vision changes. The onset was 1 days ago. The course/duration of symptoms is resolved. Location: Bilateral eye(s). The character of symptoms is blurry. The exacerbating factor is none. The relieving factor is none. Risk factors consist of none. Prior episodes: occasional. Therapy today: none. Associated symptoms: headache. Review of Systems Constitutional symptoms: No fever, Skin symptoms: Negative except as documented in HPI. Eye symptoms: Blurred vision. ENMT symptoms: Negative except as documented in HPI. Respiratory symptoms: No shortness of breath, no cough. Cardiovascular symptoms: No chest pain, no syncope. Gastrointestinal symptoms: No abdominal pain, no nausea, no vomiting, no diarrhea. Genitourinary symptoms: Negative except as documented in HPI. Musculoskeletal symptoms: Negative except as documented in HPI. Neurologic symptoms: Headache, no dizziness, no numbness, no tingling, no weakness. Psychiatric symptoms: Negative except as documented in HPI. Additional review of systems information: All systems reviewed as documented in chart. Health Status Allergies: Allergic Reactions (Selected) No Known Allergies. Past Medical/ Family/ Social History Medical history Reviewed as documented in chart. Surgical history: No active procedure history items have been selected or recorded., Reviewed as documented in chart. Family history: No family history items have been selected or recorded., Reviewed as documented in chart. Social history: Social & Psychosocial Habits No Data Available , Reviewed as documented in chart. Problem list: No qualifying data available . Physical Examination Vital Signs Vital Signs/Vital Measures 05/22/2021 15:57 EST Systolic Blood Pressure 130 mmHg Diastolic Blood Pressure 63 mmHg Temperature Source Temporal artery scanning Temperature Mode Fahrenheit Temperature, Fahrenheit 98.7 Deg F Clinical Temperature, C 37.1 Deg C Peripheral Pulse Rate 97 bpm Respiratory Rate 16 Breaths/Min Oxygen Saturation 98 % Oxygen Therapy Mode Room air . Measurements 05/22/2021 15:57 EST Height Source Estimated Height Entry Format [place] Height/Length, BRAZILIAN (ft) 5 ft Height/Length BRAZIL[place] 0 Inch CLINICALHEIGHT 152.4 cm [place] Body Weight 45.16 kg Weight Source, ED Critical estimated dosing weight Weight Entry Format [place] Weight [place] lb 160 lb CLINICALWEIGHT 72.73 kg Body Surface Area (BSA) 1.7 m2 Body Mass Index 31.3 kg/m2 HI . Oxygen Saturation 05/22/2021 15:57 EST Oxygen Saturation 98 % . General: Alert, no acute distress. Skin: Warm, dry. Head: Normocephalic. Neck: Supple, trachea midline, no tenderness. Eye: Pupils are equal, round and reactive to light, intact accommodation, extraocular movements are intact, vision unchanged. Ears, nose, mouth and throat: Oral mucosa moist. Cardiovascular: Regular rate and rhythm, Normal peripheral perfusion. Respiratory: Lungs are clear to auscultation, respirations are non-labored, breath sounds are equal. Gastrointestinal: Soft, Nontender, Non distended. Musculoskeletal: Normal ROM, no deformity. Neurological: Alert and oriented to person, place, time, and situation. Psychiatric: Cooperative, appropriate mood & affect. Medical Decision Making Differential Diagnosis: Migraine headache. Documents reviewed: Emergency department nurses' notes, prior records. Head Computed Tomography: No acute disease process, no intracranial hemorrhage, no midline shift, no mass effect, no skull deformity or fracture, interpretation by Emergency Physician. Impression and Plan Diagnosis Blurred vision, bilateral - Discharge, Medical Headache upon awakening - Discharge, Medical Plan Condition: Stable. Disposition: Discharged Admit/Transfer/Discharge: Discharge (Order): Start: 05/22/2021 19:47 EST, Discharge to: Home. Patient was given the following educational materials: Blurred Vision, Adult, General Headache Without Cause, General Headache Without Cause, Blurred Vision, Adult. Follow up with: [facility] Within 2 to 3 days; Follow up with primary care provider Within 2 to 3 days Call for follow up appointment. Please follow-up with your primary care provider in 2 to 3 days. Return to ED if you experience new or worsening symptoms. If you do not have a primary care provider the patient resource assembly stock supervisor can assist you with establishing care and scheduling follow-up. The Patient Resource Informatics Specialist can be contacted at .; KRISTINE WHITESIDE Within As needed Call for follow up appointment Follow-up as instructed. Counseled: Patient, Regarding diagnosis, Regarding diagnostic results, Regarding treatment plan, Patient indicated understanding of instructions. documented in this encounter Plan of Treatment Not on file documented as of this encounter Visit Diagnoses Not on filedocumented in this encounter
--- OUTSIDE RECORDS SUMMARY | 2024-10-31 09:49 | XMS_ITS | Encounter Summary ---
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 [place] Suicide Severity Rating Scale (C-SSRS) Entered On: 05/22/2021 16:30 EST Performed On: 05/22/2021 16:26 EST by ENID GURROLA RN-PATIENT CARE BEDSIDE NON-EXEMPT [place] Suicide Severity Rating Scale (C-SSRS) CSSRS Past Month Wish to be : No CSSRS Past Month Suicidal Thoughts : No CSSRS Lifetime Suicide Behavior : No Suicide Severity Rating Score : 0 Suicide Severity Rating : No Additional Care Required at this time ENID GURROLA RN-PATIENT CARE BEDSIDE NON-EXEMPT - 05/22/2021 16:26 EST documented in this encounter Plan of Treatment Not on file documented as of this encounter Visit Diagnoses Not on filedocumented in this encounter
--- OUTSIDE RECORDS SUMMARY | 2024-10-31 09:49 | XMS_ITS | Encounter Summary ---
Author Organization [employer] ([place], [place], [place], [place]) Address [address] [place] [address] Care Team Providers Care Director Of Bands Name Role Phone Unavailable Primary Care Provider Unavailabl e Encounter Details Date Type Department Care Team (Late st Contact Info) Description 05/22/2021 Transcribed Document [facility] [place] [facility] [place] [address] ProviderGigi MD [facility] [place] [id number] Social History Tobacco Use Types Packs/Day Years [...] Conversion Note - Historical ProviderMD - 05/22/2021 7:53 PM LOCAL BULK DRIVER ED Discharge Entered On: 05/22/2021 19:55 EST Performed On: 05/22/2021 19:53 EST by ENID GURROLA RN-PATIENT CARE BEDSIDE NON-EXEMPT Discharge Process Patient Disposition : Discharge Personal Belongings With Patient : Yes Patient Education Completed : Yes Teaching Evaluation : Verbalizes understanding IV Discontinued : Not applicable Nursing Documentation Completed : Yes ENID GURROLA RN-PATIENT CARE BEDSIDE NON-EXEMPT - 05/22/2021 19:53 EST ED Discharge Discharge To : Home without planned follow-up Mode Of Departure : Ambulatory Accompanied By : Spouse Discharge Instructions Reviewed With, Opportunity For Questions Given : Patient Prescriptions Given to Patient : No ENID GURROLA RN-PATIENT CARE BEDSIDE NON-EXEMPT - 05/22/2021 19:53 EST documented in this encounter Plan of Treatment Not on file documented as of this encounter Visit Diagnoses Not on filedocumented in this encounter
--- OUTSIDE RECORDS SUMMARY | 2024-10-31 09:49 | XMS_ITS | Encounter Summary ---
Author Organization [employer] ([place], [place], [place], [place]) Address [address] [place] [address] Care Team Providers Care Industrial Cafeteria Manager Name Role Phone Unavailable Primary Care Provider Unavailabl e Encounter Details Date Type Department Care Team (Late st Contact Info) Description 05/22/[address] [facility] [place] [facility] [place] [address] ProviderGigi MD [address] [place], [place] [phone] Social History Tobacco Use Types Packs/Day Years [...] Conversion Note - Historical ProviderMD - 05/22/2021 7:48 PM TAI CHI INSTRUCTOR Electronically signed by Bindu [facility] Conversion Acrobatic Dancer Tevin at 08/05/2022 7:54 PM CDT documented in this encounter Plan of Treatment Not on file documented as of this encounter Visit Diagnoses Not on filedocumented in this encounter
--- OUTSIDE RECORDS SUMMARY | 2024-10-31 09:49 | XMS_ITS | Encounter Summary ---
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
== END 2024-10-31 23:59 | disposition home or self-care (01) ==
LOC: RAD 09:45
PROVIDERS: PCP Family Medicine; Visit Provider Family Medicine
DX: R07.1 Chest pain on breathing (principal)
CPT/HCPCS: 71046

== ENCOUNTER 2024-11-10 08:16 | Outpatient (CLI) | payer SELFPAY ==
--- NOTE | 2024-11-10 08:00 | US_ITS ---
PROCEDURE INFORMATION: Exam: US Right Breast, Complete Exam date and time: 11/10/2024 8:21 AM Age: 29 years old Clinical indication: Pain and lump in the right breast right upper inner quadrant TECHNIQUE: Imaging protocol: Complete ultrasound of all four quadrants of the right breast and the retroareolar regions, including ultrasound of the axilla when performed. COMPARISON: No relevant prior studies available. FINDINGS: ULTRASOUND: Breast ultrasound findings: Complete scanning of the right breast and axilla are performed. There is no underlying solid or cystic abnormality, area of architectural distortion, or acoustical shadowing. No axillary adenopathy. IMPRESSION: 1. No sonographic evidence of malignancy. Continued clinical monitoring of the palpable area of concern is recommended. A diagnostic mammogram is recommended if there is a persistent palpable area of concern. 2. Further evaluation of a palpable abnormality should be based on clinical grounds regardless of radiographic findings or lack thereof. ASSESSMENT: BI-RADS Category 1: Negative.
--- OUTSIDE RECORDS SUMMARY | 2024-11-10 08:22 | XMS_ITS | Encounter Summary ---
Author Organization [employer] ([place], [place], [place], [place]) Address [address] [place] [address] Care Team Providers Care Machine Gun Mechanic Name Role Phone Unavailable Primary Care Provider Unavailabl e Encounter Details Date Type Department Care Team (Late st Contact Info) Description 05/22/2021 Transcribed Document [facility] [place] [facility] [place] [address] ProviderGigi MD [address] [place] [phone] Social History Tobacco Use Types Packs/Day Years [...] - Historical ProviderMD - 05/22/2021 5:51 PM POLICEMAN Patient: JOSÉ MIGUEL SHEIKH Age: 25 years [...] EST Height Source Estimated Height Entry Format [place] Height/Length, [place] (ft) 5 ft Height/Length [place] 0 Inch CLINICALHEIGHT 152.4 cm [place] Body Weight 45.16 kg Weight Source, ED Critical estimated dosing weight Weight Entry Format [place] Weight Martiniquais lb 160 lb CLINICALWEIGHT 72.73 kg Body [...] a primary care provider the patient resource carbon capture power plant engineer can assist you with establishing care and scheduling follow-up. The Patient Resource Protection Manager can be contacted at .; KRISTINE WHITESIDE Within As needed Call for follow up appointment Follow-up as instructed. Counseled: Patient, Regarding diagnosis, Regarding diagnostic results, Regarding treatment plan, Patient indicated understanding of instructions. Electronically signed by Merrill Ruano Conversion Occupational Therapist Home Based Cerner at 08/05/2022 7:47 PM CDT documented in this encounter Plan of Treatment Not on file documented as of this encounter Visit Diagnoses Not on filedocumented in this encounter
--- OUTSIDE RECORDS SUMMARY | 2024-11-10 08:22 | XMS_ITS | Clinical Summary ---
Author Organization [employer] ([place], [place], [place], [place]) Address [address] [place] [address] Care Team Providers Care Wagon Drill Operator Name Role Phone Unavailable Primary Care Provider [...]
--- OUTSIDE RECORDS SUMMARY | 2024-11-10 08:22 | XMS_ITS | Encounter Summary ---
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
--- OUTSIDE RECORDS SUMMARY | 2024-11-10 08:22 | XMS_ITS | Encounter Summary ---
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
--- OUTSIDE RECORDS SUMMARY | 2024-11-10 08:22 | XMS_ITS | Encounter Summary ---
Author Organization [employer] ([place], [place], [place], [place]) Address [address] [place] [address] Care Team Providers Care Pre Certification Specialist Name Role Phone Unavailable Primary Care Provider Unavailabl e Encounter Details Date Type Department Care Team (Late st Contact Info) Description 05/22/2021 Transcribed Document [facility] [place] [facility] [place] [address] ProviderGigi MD [address] [place] [address] Social History Tobacco Use Types Packs/Day Years [...] - Historical ProviderMD - 05/22/2021 3:52 PM PIPE STEM SAWYER Broset Violence Assessment Entered On: 05/22/2021 16:29 [...]
--- OUTSIDE RECORDS SUMMARY | 2024-11-10 08:22 | XMS_ITS | Referral Summary ---
Author Organization [employer] ([place], [place], [place], [place]) Address [address] [place] [address] Care Team Providers Care Nuclear Test Technician Name Role Phone Unavailable Primary Care Provider [...]
--- OUTSIDE RECORDS SUMMARY | 2024-11-10 08:22 | XMS_ITS | Clinical Summary ---
Author Organization [facility] Address [address] [place] [address] Care Team Providers Care Ed Special Education Teacher Name Role Phone Cate Tobar PA-C Primary Care Provider + [phone] Allergies No known active allergies Medications albuterol (PROVENTIL) (2.5 MG/3ML) 0.083% nebulizer solutionIndicat ions:Asthma, mild intermittent, well-controlled Take 2.5 mg by nebulization Every 4 (Four) Hours As Needed for Wheezing or Shortness of Air. 30 each 1 1 Active albuterol sulfate HFA 108 (90 Base) MCG/ACT inhalerIndicati ons:Asthma, mild intermittent, well-controlled Inhale 2 puffs Every 4 (Four) Hours As Needed for Wheezing or Shortness of Air. 18 g 2 3 Active buPROPion XL (Wellbutrin XL) 150 MG 24 hr tabletIndicatio ns:Generalized anxiety disorder,Modera te episode of recurrent major depressive disorder Take 1 tablet by mouth Daily. 90 tablet 1 3 Active escitalopram (LEXAPRO) 10 MG tabletIndicatio ns:Generalized anxiety disorder,Modera te episode of recurrent major depressive disorder Take 1 tablet by mouth Daily. 30 tablet 3 Active Active Problems Problem Noted Date Diagnosed Date Routine general medical exam ination at a health care facility 11/23/2022 Class 1 obesity due to exces s calories without serious comorbidity with body mass index (BMI) of 33.0 to 33.9 in adult 11/23/2022 Assessment & Plan (11/23/2022 8:31 PM EDT): Patient's (Body mass index is 33.28 kg/m .) indicates that they are obese (BMI >30) with health conditions that include none . Weight is unchanged. BMI is above average; BMI management plan is completed. We discussed portion control and increasing exercise. Upper respiratory tract infection 01/17/2021 Assessment & Plan (01/17/2021 9:48 AM EDT): Tx w/amox, f/u if sx worsen or persist. Suggested stahist and mucinex DM. Covid test today Moderate episode of recurrent major depressive d isorder 12/07/2020 Assessment & Plan (11/18/2022 1:23 PM EDT): Chronic, uncontrolled, cont Lexapro 10, add Wellbutrin 150 to help with energy level Assessment & Plan (01/17/2021 9:50 AM EDT): Patient's depression is recurrent and is moderate without psychosis. Their depression is currently in full remission and the condition is improving with treatment. This will be reassessed in 3 months. F/U as described:patient will continue current medication therapy. Assessment & Plan (12/07/2020 10:53 AM EDT): Patient's depression is recurrent and is moderate without psychosis. Their depression is currently active and the condition is newly identified. This will be reassessed in 2 weeks. F/U as described:patient was prescribed an antidepressant medicine. Will start Lexapro, pt to f/u with therapist as directed. Follow up in 2 weeks or sooner if has AE or worsening sx. Stop med and go to ER if has HI/SI. Risks and benefits of medical treatment discussed. Common side effects reviewed. Generalized anxiety disorder 12/07/2020 Assessment & Plan (11/23/2022 8:31 PM EDT): Chronic, uncontrolled, cont Lexapro 10, add Wellbutrin 150 to help with energy level Assessment & Plan (01/17/2021 9:50 AM EDT): Psychological condition is improving with treatment. Continue current treatment regimen. Psychological condition will be reassessed in 3 months. Assessment & Plan (12/07/2020 10:53 AM EDT): Psychological condition is newly identified. Medication changes per orders. Psychological condition will be reassessed in 2 weeks. Vistaril prn for anxiety and insomnia Insomnia 12/07/2020 Abnormal thyroid function test 08/06/2020 Assessment & Plan (08/06/2020 10:18 AM EDT): History of low TSH in the past with normal T4. We will recheck today. Asthma, well controlled 08/06/2020 Assessment & Plan (11/18/2022 11:55 AM EDT): Chronic, controlled, alb prn Assessment & Plan (08/06/2020 10:17 AM EDT): Asthma is unchanged. The patient is experiencing [...] average to discuss daily inhaler. Allergic rhinitis 08/06/2020 Assessment & Plan (01/17/2021 9:48 AM EDT): claritin and flonase as dir Tonsillar hypertrophy 08/06/2020 Wheeze 08/06/2020 Assessment & Plan (08/06/2020 10:17 AM EDT): May be related to asthma/allergies however due to history of smoking will get chest x-ray, also due to patient concern for cancer. Chronic tonsillitis 08/06/2020 Assessment & Plan (08/06/2020 10:17 AM EDT): Refer to ENT for follow-up and discussion. May be related to allergies so we will treat allergies with Claritin and Flonase. Vacuum extractor delivery, delivered 12/25/2018 Other follow-up examination 02/01/2018 Lack of energy 01/22/2015 Resolved Problems Problem Noted Date Diagnosed Date Resolved Date False labor after 37 weeks o f gestation without delivery 12/24/2018 12/25/2018 12/24/2018 12/25/2018 Immunizations Immunization Administration Dates Next Due Fluzone (or Fluarix & Flulaval for VFC) >6mos Fluzone Quad >6mos (Multi-dose) 01/17/2020 Influenza, Unspecified 03/05/2012 PPD Test 12/22/2015 Rho (D) Immune Globulin 12/25/2018 Tdap 12/26/2021 Family History Medical History Relation Name Comments Hypertension Father Hypertension Maternal Grandmother Cancer Paternal Grandmother Relation Name Status Comments Father Maternal Grandmother Paternal Grandmother Social History Tobacco Use Types Packs/Day Years Used Date Smoking Tobacco: Former Cigarettes 1 8 0 04/2010 - 04/2018 Smokeless Tobacco: Never Alcohol Use Standard Drinks/Week Comments No 0 (1 standard drink = 0.6 oz pur e alcohol) PHQ-2 Answer Date Recorded Retired PHQ-9: Brief Depression Severity Measure Score 0 11/18/2022 Devens Depression Scale Answer Date Recorded Retired Devens Depression Score 5 12/26/2018 Retired EPD Scale: Thought of Harming Self Unrec ognized value 12/26/2018 Abuse Screen Answer Date Recorded Unsafe at Home or Work/School Not on file Feels Threatened by Someone? Not on file 12/2022 Does Anyone Keep You from Co ntacting Others or Doint Things Outside the Home? Not on file 01/26/2023 Physical Sign of Abuse Present Not on file 1 Housing Stability Answer Date Recorded Current Living Arrangements Not on file 12/2022 Potentially Unsafe Housing Conditions Not on lizbeth e 01/26/2023 Family and Community Support Answer Fernando e Recorded Help with Day-to-Day Activities Not on file 01/26/2023 Lonely or Isolated Not on file 01/26/2023 Employment Answer Date Recorded Do you want help finding or keeping work or a kari b? Not on file 01/26/2023 Disabilities Answer Date Recorded Concentrating, Remembering, or Making Decisions Difficulty Not on file 01/26/2023 Doing Errands Independently Difficulty Not on fi le 01/26/2023 Education Answer Date Recorded Help with school or training? Not on file Preferred Language Not on file 01/26/2023 PHQ-2 Answer Date Recorded Retired PHQ-9: Brief Depression Severity Measure Score 0 11/18/2022 Comments No Sex and Gender Information Value Date Recorded Sex Assigned at Not on file Legal Sex Female 10:42 AM EDT Gender Identity Not on file Sexual Orientation Not on file Last Filed Vital Signs Vital Sign Reading Time Taken Comments Blood Pressure 112/60 11/18/2022 11:38 AM EDT Pulse 75 11/18/2022 11:38 AM EDT Temperature 36.8 C (98.3 F) 11/18/2022 11:38 AM EDT Respiratory Rate 14 11/18/2022 11:38 AM EDT Oxygen Saturation 98% 11/18/2022 11:38 AM EDT Inhaled Oxygen Concentration - - Weight 77.3 kg (170 lb 6.4 oz) 11/18/2022 11:38 AM EDT Height 152.4 cm (5') 06/05/2022 9:20 AM EST Body Mass Index 33.28 06/05/2022 9:20 AM EST Plan of Treatment Health Maintenance Due Date Last Done Comments Annual Gynecologic Pelvic an d Breast Exam 1993 Pneumococcal Vaccine 0-49 (1 of 2 - PCV) 2012 ANNUAL PHYSICAL 11/19/2023 11/18/2022 COVID-19 Vaccine ( - season) 2023 INFLUENZA VACCINE 01/18/2025 03/20/2022, , 03/05/2012 TDAP/TD VACCINES (2 - Td or Tdap) 12/27/2031 022 HEPATITIS C SCREENING Completed 06/07/2018, 015 Procedures Procedure Name Priority Date/Time Associated Diagnosis Comments HEPATITIS C ANTIBODY Routine 06/07/2018 2:30 PM EST Weeks of gestation of not specified care, subsequent , first trimester from Last 3 Months or Most Recently Relevant to Health Maintenance Results * Hepatitis C Antibody (06/07/2018 2:30 PM EST) Hepatitis C Ab Non-Reacti ve Non-Reacti ve 06/07/2018 4:04 PM EST [facility] Blood Venipuncture / Unknown 06/07/2018 2:30 PM EST 06/07/2018 2:30 PM EST Patricia Tate [facility] BLOOD ORDERABLES Fi nal Result [facility]
[address] [place] [address], from Last 3 Months or Most Recently Relevant to Health Maintenance Advance Directives * CPR (Attempt to Resuscitate) (Latest Code Status on File) Date Activated Date Inactivated Comments 12/25/2018 11:44 AM 12/27/2018 2:58 PM Question Answer Comments Code Status (Patient has no pulse and is not breathing): CPR (Attempt to Resuscitate) Medical Interventions (Patie nt has pulse or is breathing): Full * CPR (Attempt to Resuscitate) Date Activated Date Inactivated Comments 12/24/2018 5:32 PM 12/25/2018 11:44 AM Question Answer Comments Code Status (Patient has no pulse and is not breathing): CPR (Attempt to Resuscitate) Medical Interventions (Patie nt has pulse or is breathing): Full Care Teams Ed Special Education Teacher Relationship Specialty Start Date End Date Cate Tobar PA-C [address] [facility] [address] [place] [address] PCP - General Physician Drafter Automotive Design Layout 08/06/20
--- OUTSIDE RECORDS SUMMARY | 2024-11-10 08:22 | XMS_ITS | Encounter Summary ---
Author Organization [employer] ([place], [place], [place], [place]) Address [address] [place] [address] Care Team Providers Care Veterinary Laboratory Technician Name Role Phone Unavailable Primary Care Provider Unavailabl e Encounter Details Date Type Department Care Team (Late st Contact Info) Description 05/22/2021 Transcribed Document [facility] [place] [facility] [place] [address] ProviderGigi MD [address] [place] [address] Social History Tobacco Use Types [...] - Gigi ProviderMD - 05/22/2021 7:49 PM TONGUE LINING STITCHER [address] [address] JOSÉ MIGUEL SHEIKH :1995 Visit [...] up appointment Follow-up as instructed Where: [address] [place] [address]- Business (1) Follow Up with Follow up with primary care provider When Within 2 to 3 days Comments Call for follow up appointment. Please follow-up with your primary care provider in 2 to 3 days. Return to ED if you experience new or worsening symptoms. If you do not have a primary care provider the patient resource esl tutor can assist you with establishing care and scheduling follow-up. The Patient Resource Assurance Manager can be contacted at . Follow Up [...] with your condition: Managing pain ??? Take [id number] and prescription medicines only as told by [...] provider. Document Revised: 10/25/2018 Document Reviewed: 10/25/2018 [employer] Patient Education ?? 2020 [employer]. Blurred Vision, Adult Having blurred vision means [...] care provider who specializes in eye problems (esl tutor). Your treatment will depend on what is [...] provider. Document Revised: 12/07/2020 Document Reviewed: 12/07/2020 [employer] Patient Education ?? 2020 [employer] Emergency Awareness and Preventative Care STROKE [...] Assistance with quitting is available by contacting 9-531-FLKU-NOW. This is a free resource providing counseling, [...] was given the opportunity to ask questions. Patient/Applications Tester Name: Patient/Applications Tester Signature: Relationship to Patient: Clinician/Hospital Applications Tester Signature: Please Provide a Telephone Number Where You Can Be Reached: Is it Permissible To Leave a Message? Date: documented in this encounter Plan of Treatment Not on file documented as of this encounter Visit Diagnoses Not on filedocumented in this encounter
--- OUTSIDE RECORDS SUMMARY | 2024-11-10 08:22 | XMS_ITS | Encounter Summary ---
Author Organization [employer] ([place], [place], [place], [place]) Address [address] [place] [address] Care Team Providers Care Leg Breaker Name Role Phone Unavailable Primary Care Provider Unavailabl e Encounter Details Date Type Department Care Team (Late st Contact Info) Description 05/22/2021 Transcribed Document [facility] [place] [facility] [place] [address] ProviderGigi MD [address] [place] [id number] Social History Tobacco Use Types Packs/Day Years [...] - Historical ProviderMD - 05/22/2021 3:52 PM VENTURE CAPITAL ANALYST ED Triage Entered On: 05/22/2021 16:00 EST Performed On: 05/22/2021 15:57 EST by HALI PARRA RN ED Triage Across the Room Chief Complaint : Pt C/o dizziness and blurred vision that occured in the middle of the night Triage Date/Time : 05/22/2021 15:57 EST HALI PARRA RN - 05/22/2021 15:57 EST DCP GENERIC CODE Tracking Acuity : 3 - Urgent Tracking Group : [facility] HALI PARRA RN - 05/22/2021 [...] PNED ; Probability: 0 ; Diagnosis Code: [id number] ED Height and Weight Height Source : Estimated Height Entry Format : [place] Height, Feet : 5 ft(Converted to: 152 cm, 60 Inch) Height, Inches : 0 Inch(Converted to: 0 ft 0 Inch, 0.00 cm) Clinical Height : 152.4 cm Weight Source, ED : Critical estimated dosing weight Weight Entry Format : [place] Weight, Pounds : 160 lb Clinical Dosing Weight : 72.73 kg Body Surface Area (BSA) : 1.7 m2 Body Mass Index : 31.3 kg/m2 (HI) [place] Body Weight (IBW) : 45.16 kg HALI PARRA RN - 05/22/2021 15:57 EST documented in this encounter Plan of Treatment Not on file documented as of this encounter Visit Diagnoses Not on filedocumented in this encounter
--- OUTSIDE RECORDS SUMMARY | 2024-11-10 08:22 | XMS_ITS | Encounter Summary ---
Author Organization [employer] ([place], [place], [place], [place]) Address [address] [place] [address] Care Team Providers Care Stock Lifter Name Role Phone Unavailable Primary Care Provider Unavailabl e Encounter Details Date Type Department Care Team (Late st Contact Info) Description 05/22/2021 Transcribed Document [facility] [place] [facility] [place] [address] ProviderGigi MD [facility] [place] [id number] Social History Tobacco Use Types Packs/Day Years [...] - Historical ProviderMD - 05/22/2021 7:53 PM CHANCELLOR ED Discharge Entered On: 05/22/2021 19:55 EST [...]
--- OUTSIDE RECORDS SUMMARY | 2024-11-10 08:22 | XMS_ITS | Clinical Summary ---
Author Organization [facility] Address [address] [place] [address] Care Team Providers Care Detective Sergeant Name Role Phone Pcp, No Primary Care [...] Date Smoking Tobacco: Every Day Cigarettes 0.5 12.6 Started: 2012 Smokeless Tobacco: Never Tobacco Cessation:Ready [...] 08/01/2022 [facility]-Cervical Cancer Screening 10/22/2023 [facility]-HPV/Cotest 10/22/2023 [id number] Vaccine (1 - season) 2023 [facility]-Influenza Vaccine [...] Most Recently Relevant to Health Maintenance Insurance [address] [place], [place] [id number] Care Teams Detective Sergeant Relationship Specialty Start Date End Date Pcp, No [address] [id number] PCP - General Family Medicine 12/26/21
--- OUTSIDE RECORDS SUMMARY | 2024-11-10 08:22 | XMS_ITS | Encounter Summary ---
Author Organization [employer] ([place], [place], [place], [place]) Address [address] [place] [address] Care Team Providers Care Fruit Loader Machine Operator Name Role Phone Unavailable Primary Care Provider Unavailabl e Encounter Details Date Type Department Care Team (Late st Contact Info) Description 05/22/2021 Transcribed Document [facility] [place] [facility] [place] [address] ProviderGigi MD [facility] [place] [id number] Social History Tobacco Use Types Packs/Day Years [...] - Gigi ProviderMD - 05/22/2021 3:52 PM CORE PLACER ED Assessment Entered On: 05/22/2021 19:03 EST Performed On: 05/22/2021 19:01 EST by EIND GURROLA RN-PATIENT CARE BEDSIDE NON-EXEMPT ED Quick Look Assessment Level of Consciousness : Alert Affect/Behavior : Appropriate, Calm, Cooperative Orientation : Oriented x 4 ENID GURROLA RN-PATIENT CARE BEDSIDE NON-EXEMPT - 05/22/2021 19:01 EST ED General-Functional Assess Information Obtained From : Patient Communication Barrier : None Primary Language : Swiss Any Spiritual/Cultural Needs or Requests : No [...]
--- OUTSIDE RECORDS SUMMARY | 2024-11-10 08:22 | XMS_ITS | Patient Health Record ---
Author Organization [facility] Address [address] [place] [address] Care Team Providers Care Line Department Supervisor Name Role Phone BebetoAzraPatricia Unavailable [phone] Ryann Nolasco Unavailable [phone] Allergies Allergen (clinical drug ingredient) Drug/Non Drug Allergy documented on EMR Reaction Allergy Type Onset Date Status LATEX EXAM GLOVES (DISPOSABLE GLOVES) Unspecified Drug Allergy 12/28/2015 Active Reason For Referral No Information Social History Social History Additional Details Category Social Info Options Details Miscellaneous: Caffeine: CAFFEINE USE: 0 Encounters Encounter Location Date Provider Diagnosis [facility] [address] [facility] [address] [place] [address] 12/10/2023 Ryann Nolasco [facility] [address] [place] [address] 03/29/2024 Ryann Nolasco Plan Of Treatment No Information Medical (General) History Medical History History ICD Code MENSTR FLOW: Light SOCIAL HX: previous smoker SOCIAL HX: previous smoker Chlamydia Yeast Infection Bacterial vaginosis Urinary tract infections Anxiety Depression Herpes A Routine FLAGYL 500 MG ORAL TABLET, ORAL DIFLUCAN 150 MG ORAL TABLET, ORAL Surgical History Surgery Date(Month/Year) None noted.
== END 2024-11-10 23:59 | disposition home or self-care (01) ==
LOC: RAD 08:19
PROVIDERS: PCP Family Medicine; Visit Provider Family Medicine
DX: N64.4 Mastodynia (principal); N63.12 Unspecified lump in the right breast, upper inner quadrant
CPT/HCPCS: 76641